=== PATIENT | male | born 1985 ===

== ENCOUNTER 2023-06-28 08:29 | Outpatient (REF) | payer OTHER, SELFPAY | END 2023-06-28 08:30 | disposition home or self-care (01) | LOC: HO.SH 08:29 | PROVIDERS: Visit Provider Physician Assistant | DX: Z01.118 Encounter for examination of ears and hearing with other abnormal findings (principal); H90.3 Sensorineural hearing loss, bilateral | CPT/HCPCS: 92553; 92555; 92567 ==